=== PATIENT | male | born 1945 | race Caucasian/White ===

== ENCOUNTER 2016-05-02 14:38 | Emergency (ER) | payer MEDICARE, OTHER ==
[2016-05-02] MEDS ORDERED: DIPHENHYDRAMINE HCL IV 50 MG/ML VIAL IVP ONE (15:14)
[2016-05-02] MEDS ORDERED: 0.9 % SODIUM CHLORIDE 1000ML 1,000 ML IV ONE (15:14)
[2016-05-02] MEDS ORDERED: METHYLPREDNISOLONE PF 125MG/VIAL IVP ONE (15:15)
--- NOTE | 2016-05-02 15:16 | Emergency Department Record ---
History of Present Illness - General Chief complaint: ENT Stated complaint: ? ALLERGIC REACTION/TONGUES SWELLING Time Seen by Provider: 05/02/16 15:14 Source: Patient Mode of Arrival: Ambulatory - History of Present Illness Initial comments: ate peanuts yesterday and mouth swelled up and no breathing problems and he has most of the swelling below the tongue and he stated he previously was getting itching when eating peanuts or cashews. Breathing is fine and have some difficult swallowing but able to swallow water. Onset/Timin -: Days(s) Location: Tongue Worsens with: Swallowing - Related Data Home Medications Medication Instructions Recorded Confirmed Last Taken Amlodipine Besylate [Norvasc] 10 mg PO DAILY 05/02/16 05/02/16 05/01/16 Aspirin [Adult Low Dose Aspirin EC] 81 mg PO DAILY 05/02/16 05/02/16 05/02/16 Clonidine HCl [Clonidine HCl] 1 tab PO ASDIR 05/02/16 05/02/16 05/02/16 Multivitamin/Iron/Folic Acid 1 tab PO DAILY 05/02/16 05/02/16 05/02/16 [Centrum] Allergies Allergy/AdvReac Type Severity Reaction Status Date / Time cashew nut Allergy HIVES Verified 05/02/16 14:49 meperidine HCl [From Demerol] AdvReac ALTERED Verified 05/02/16 14:49 MENTAL STATUS Travel Screening - Travel/Exposure Within Last 30 Days Have you traveled within the last 30 days?: No - Travel/Exposure Within Last Year Have you traveled outside the [place] in the last year?: No - Additonal Travel Details Have you been exposed to anyone with a communicable illness?: No - Travel Symptoms Symptom Screening: None Review of Systems Reviewed: No additional complaints except as noted below Constitutional: Reports: As per HPI. Denies: Chills, Fever, Malaise, Night sweats, Weakness, Weight change Eyes: Reports: As per HPI. Denies: Eye discharge, Eye pain, Photophobia, Vision change ENT: Reports: As per HPI, Other (swelling under tongue and tongue). Denies: Congestion, Dental pain, Ear pain, Epistaxis, Hearing loss, Throat pain Respiratory: Reports: As per HPI. Denies: Cough, Dyspnea, Hemoptysis, Stridor, Wheezes Cardiovascular: Reports: As per HPI. Denies: Arrhythmia, Chest pain, Dyspnea on exertion, Edema, Murmurs, Orthopnea, Palpitations, Paroxysmal nocturnal dyspnea, Rheumatic Fever, Syncope Endocrine: Reports: As per HPI. Denies: Fatigue, Heat or cold intolerance, Polydipsia, Polyuria Gastrointestinal: Reports: As per HPI. Denies: Abdominal pain, Constipation, Diarrhea, Hematemesis, Hematochezia, Melena, Nausea, Vomiting Genitourinary: Reports: As per HPI. Denies: Dysuria, Frequency, Hematuria, Incontinence, Retention, Testicular pain, Testicular mass, Urgency Musculoskeletal: Reports: As per HPI. Denies: Arthralgia, Back pain, Gout, Joint swelling, Myalgia, Neck pain Skin: Reports: As per HPI. Denies: Bruising, Change in color, Change in hair/ nails, Lesions, Pruritus, Rash Neurological: Reports: As per HPI. Denies: Abnormal gait, Confusion, Headache, Numbness, Paresthesias, Seizure, Tingling, Tremors, Vertigo, Weakness Psychiatric: Reports: As per HPI. Denies: Anxiety, Auditory hallucinations, Depression, Homicidal thoughts, Suicidal thoughts, Visual hallucinations Hematological/Lymphatic: Reports: As per HPI. Denies: Anemia, Blood Clots, Easy bleeding, Easy bruising, Swollen glands Past Medical History - SOCIAL HISTORY Smoking Status: Former smoker Alcohol Use: Occassional Drug Use: None - RESPIRATORY Hx Respiratory Disorders: Yes Hx Bronchitis: Yes Hx COPD: Yes (possibly minor) Hx Dyspnea: Yes (with exertion) Hx Sleep Apnea: Yes Hx of CPAP: No Comment:: occass allergies - CARDIOVASCULAR Hx Cardio Disorders: Yes Hx Chest Pain: Yes (years ago not cardiac) Hx Edema: Yes (ankles) Hx Hypertension: Yes (on meds fair control) Comment:: right carotid artery blockage no sx 60-70 % monitored every 9 months - NEURO Hx Neuro Disorders: Yes Hx of Migraines: Yes (occular migraines) 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 - GI Hx GI Disorders: No - Hx Genitourinary Disorders: Yes Hx Prostate Problems: Yes (enlarged) - ENDOCRINE Hx Endocrine Disorders: No Hx Diabetes: No - MUSCULOSKELETAL Hx Musculoskeletal Disorders: Yes Hx Arthritis: Yes (fingers and toes) Comment:: displaced fx right little finger - PSYCH Hx Psych Problems: No - HEMATOLOGY/ONCOLOGY Hx Hematology/Oncology Disorders: No Family Medical History Any Significant Family History?: Yes Hx Cancer: Father, Brother/Sister Hx Dementia: Mother Hx HTN: Father, Mother Physical Exam - General General Appearance: Alert, Oriented x3, Cooperative, No acute distress - Head Head exam: Normal inspection - Eye Eye exam: Normal appearance, PERRL Pupils: Normal accommodation - ENT ENT exam: Mucous membranes moist, Normal external ear exam, TM's normal bilaterally, Other (posterior throat not swollen but swelling under the tongue and tongue) Ear exam: Normal external inspection. negative: External canal tenderness Nasal Exam: Normal inspection. negative: Discharge, Sinus tenderness Mouth exam: Normal external inspection, Tongue normal Teeth exam: Normal inspection. negative: Dental caries Throat exam: Normal inspection. negative: Tonsillar erythema, Tonsillar exudate - Neck Neck exam: Normal inspection, Full ROM. negative: Tenderness - Respiratory Respiratory exam: Normal lung sounds bilaterally. negative: Respiratory distress - Cardiovascular Cardiovascular Exam: Regular rate, Normal rhythm, Normal heart sounds - GI/Abdominal GI/Abdominal exam: Soft, Normal bowel sounds. negative: Tenderness - Rectal Rectal exam: Deferred - exam: Deferred - Extremities Extremities exam: Normal inspection, Full ROM, Normal capillary refill. negative: Tenderness - Back Back exam: Reports: Normal inspection, Full ROM. Denies: Muscle spasm, Rash noted, Tenderness - Neurological Neurological exam: Alert, Normal gait, Oriented X3, Reflexes normal - Psychiatric Psychiatric exam: Normal affect, Normal mood - Skin Skin exam: Dry, Intact, Normal color, Warm Course Vital Signs 05/02/16 14:53 Temperature 98.1 F Pulse Rate 63 Respiratory 16 Rate Blood Pressure 150/76 Pulse Ox 94 L - Reevaluation(s) Reevaluation #1: discussed case with patient and concerned if things get worse may need to be intubated but the solu medrol and benadryl helped. 05/02/16 16:28 Reevaluation #2: Discussed case with Dr. Rios and will accept admission transfer via ambulance 05/02/16 16:47 Disposition Clinical Impression: Edema of throat Allergic reaction Qualifiers: Encounter type: initial encounter Qualified Code(s): T78.40XA - Allergy, unspecified, initial encounter Disposition: Acute Care Hospital Transfer Condition: (2) Stable Forms: Patient Portal Access Time of Disposition: 16:48
[2016-05-02] MEDS ORDERED: FAMOTIDINE IV 20 MG/2 ML VIAL IVP ONE (18:40)
== END 2016-05-02 20:12 | disposition short-term general hospital (02) ==
LOC: ER 14:38
DX: T78.1XXA Other adverse food reactions, not elsewhere classified, initial encounter (principal); T78.3XXA Angioneurotic edema, initial encounter; I10 Essential (primary) hypertension; Z87.891 Personal history of nicotine dependence
CPT/HCPCS: 96361; 96374; 96375; 99285; J1200; J2930; J3490

== ENCOUNTER 2016-08-13 09:22 | Day surgery (SDC) | payer MEDICARE, OTHER ==
[2016-08-13] MEDS ORDERED: LIDOCAINE 2% MDV (20MG/ML) 20ML VIAL IV ONE (14:00)
[2016-08-13] MEDS ORDERED: MIDAZOLAM HCL 2MG/2ML VIAL IV ONE (14:00)
[2016-08-13] MEDS ORDERED: PROPOFOL 10 MG/ML VIAL IV ONE (14:00)
--- NOTE | 2016-08-13 17:20 | Operative Note ---
DATE OF SURGERY: 08/13/2016 OPERATION: COLONOSCOPY to the cecum. INDICATION: Family history of colon cancer (father). The patient presents at this time for screening. ANESTHESIA: Intravenous sedation was administered by the department of anesthesiology and included Diprivan titrated to effect. PROCEDURE: Following informed consent from this alert individual including a discussion of the risks and benefits of the procedure and an opportunity for the patient to ask questions, the patient was in the left lateral decubitus position. A digital rectal examination was performed. No abnormalities were noted. Following this, the Olympus [id number] video colonoscope was inserted into the rectum without resistance. The rectal mucosa had a normal appearance with normal folds and distensibility. The colonoscope was advanced up through the bowel to the level of the cecum without much difficulty. Throughout the bowel the mucosa appeared normal, the folds were normal, and the bowel was fairly well distensible. The cecum was defined by noting the appendiceal orifice and ileocecal valve. Retroflexion in the cecum was endoscopically normal. The colon preparation was good. From the base of the cecum, the colonoscope was then withdrawn. There were a few diverticula noted in the sigmoid colon. No other changes were appreciated. No polyps were noted. Retroflexion in the rectum was endoscopically unremarkable. The endoscope was straightened and withdrawn. The patient tolerated the procedure well and was returned to the recovery area in stable condition. IMPRESSION: Sigmoid diverticulosis. Otherwise unremarkable colonoscopy to the cecum. RECOMMENDATIONS: The patient was advised to have recheck colonoscopy in 5 years' time or sooner should problems arise. Followup will otherwise be with Dr. Zeke Matson. As always, thank you for allowing me to participate in the care of your patient. Carlos Burgos DO CC: Dr. Zeke GRIFFIN
== END 2016-08-13 11:45 | disposition home or self-care (01) ==
LOC: HOP 09:22
PROVIDERS: ATTEND Internal Medicine Gastroenterology
DX: Z12.11 Encounter for screening for malignant neoplasm of colon (principal); I10 Essential (primary) hypertension; K57.30 Diverticulosis of large intestine without perforation or abscess without bleeding
CPT/HCPCS: 00810; G0121

== ENCOUNTER 2018-12-12 10:35 | Emergency (ER) | payer MEDICARE ==
--- NOTE | 2018-12-12 11:07 | Emergency Department Record ---
History of Present Illness - General Chief Complaint: Laceration(s) Stated Complaint: RT HAND LAC Time Seen by Provider: 12/12/18 11:00 Source: Patient Mode of Arrival: Ambulatory Limitations: No limitations - History of Present Illness Initial Commments: The patient is here due to cutting his R hand with a eileen knife an hour ago. He denies any numbness or tingling or weakness to his fingers or thumb. The patient states his Td is UTD. Onset/Timin -: Hour(s) Place: Home Context: Accidental Associated Symptoms: None Treatments Prior to Arrival: Bandage - Cleve Coma Scale Eye Response: (4) Open spontaneously Motor Response: (6) Obeys commands Verbal Response: (5) Oriented Cleve Total: 15 - Related Data Hx Tetanus Toxoid Vaccination: No Patient Tetanus UTD (within 5 yrs): No Home Medications Medication Instructions Recorded Confirmed Last Taken Naproxen Sod/Diphenhydramine 1 each PO QHS 12/12/18 12/12/18 Unknown [Aleve Pm Caplet] Previous Rx's Medication Instructions Recorded Cephalexin [Keflex] 500 mg PO TID #15 cap 12/12/18 Allergies Allergy/AdvReac Type Severity Reaction Status Date / Time cashew nut Allergy HIVES Verified 12/12/18 10:56 nut - unspecified Allergy HIVES Verified 12/12/18 10:56 meperidine HCl [From Demerol] AdvReac ALTERED Verified 12/12/18 10:56 MENTAL STATUS Travel Screening - Travel/Exposure Within Last 30 Days Have you traveled within the last 30 days?: No Review of Systems Constitutional: Denies: Chills, Fever Past Medical History - SOCIAL HISTORY Smoking Status: Former smoker Alcohol Use: None Drug Use: None - RESPIRATORY Hx Respiratory Disorders: Yes Hx Bronchitis: Yes Hx COPD: Yes Hx Dyspnea: Yes (with exertion) Hx Sleep Apnea: Yes Hx of CPAP: No Comment:: occass allergies - CARDIOVASCULAR Hx Cardio Disorders: Yes Comment:: right carotid artery blockage no sx, high cholesterol - NEURO Hx Neuro Disorders: Yes Hx of Migraines: Yes (occular migraines) 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 - GI Hx GI Disorders: No - Hx Genitourinary Disorders: Yes Hx Prostate Problems: Yes (enlarged) - ENDOCRINE Hx Endocrine Disorders: No Hx Diabetes: No - MUSCULOSKELETAL Hx Musculoskeletal Disorders: Yes Hx Arthritis: Yes (fingers and toes) - PSYCH Hx Psych Problems: No - HEMATOLOGY/ONCOLOGY Hx Hematology/Oncology Disorders: No Family Medical History Any Significant Family History?: Yes Hx Cancer: Father, Brother/Sister Hx Dementia: Mother Hx HTN: Father, Mother Physical Exam - General General Appearance: Alert, Cooperative, No acute distress - Head Head exam: Atraumatic, Normocephalic - Extremities Extremities exam: negative: Normal inspection (There is a 2 cm lac to the dorsal R hand just proximal to the R 1st MCP. There is normal extension of the R thumb and normal sensation distally.) Image of Hand: 1 - Area of laceration. - Neurological Neurological exam: Alert. negative: Motor sensory deficit Course Vital Signs 12/12/18 10:50 Temperature 97.7 F Pulse Rate 66 Respiratory 16 Rate Blood Pressure 165/60 Pulse Ox 94 L - Reevaluation(s) Reevaluation #1: Procedure note: The R hand laceration was anesth. with 3 cc's Lido 1% with Epi. The wound was prepped with betadine and lavaged with sterile saline. The wound was explored and not down to tendon or bone. The lac was closed with 5 4.0 nylon sutures. There were no complications. 12/12/18 11:31 Disposition Disposition: Discharge Clinical Impression: Laceration of hand Qualifiers: Encounter type: initial encounter Foreign body presence: without foreign body Laterality: right Qualified Code(s): S61.411A - Laceration without foreign body of right hand, initial encounter Disposition: Home, Self-Care Condition: (2) Stable Instructions: Laceration (ED) Additional Instructions: Keep dry for 2 days then no soaking or swimming. Take the Keflex as directed and return for signs of infection. Have the sutures removed in 10 days. Prescriptions: Cephalexin [Keflex] 500 mg PO TID #15 cap Forms: Patient Portal Access Time of Disposition: 11:34 Quality - Quality Measures Quality Measures: N/A - Blood Pressure Screening View Details: Yes Does Patient Have Any of the Following: No Blood Pressure Classification: Hypertensive Reading Systolic Measurement: 165 Diastolic Measurement: 60 Screening for High Blood Pressure: < First Hypertensive BP, F/U Documented > [G8950] First Hypertensive Follow-up Interventions: Referral to alternative/primary care provider.
[2018-12-12] MEDS ORDERED: Diph,Pert(Acell),Tet Vac 0.5 ML SYR IM ONE (11:28)
== END 2018-12-12 11:50 | disposition home or self-care (01) ==
LOC: ER 10:35
DX: S61.411A Laceration without foreign body of right hand, initial encounter (principal); W26.0XXA Contact with knife, initial encounter; Y92.009 Unspecified place in unspecified non-institutional (private) residence as the place of occurrence of the external cause
CPT/HCPCS: 12001; 90715; 96372; 99283

== ENCOUNTER 2018-12-22 09:54 | Emergency (ER) | payer MEDICARE ==
--- NOTE | 2018-12-22 10:11 | Emergency Department Record ---
History of Present Illness - General Chief Complaint: Suture removal Stated Complaint: SUTURE REMOVAL Time Seen by Provider: 12/22/18 09:55 Source: Patient Mode of arrival: Ambulatory Limitations: No limitations - History of Present Illness Initial Comments: The patient is here for suture removal. He denies any problems. Complaint: Suture/staple removal Onset/Timin -: Days(s) Initial Visit For: Laceration Returns Today for: Staple/stitch removal Symptoms Since Prior Visit: No new symptoms Associated Symptoms: None - Related Data Previous Rx's Medication Instructions Recorded Cephalexin [Keflex] 500 mg PO TID #15 cap 12/12/18 Allergies Allergy/AdvReac Type Severity Reaction Status Date / Time cashew nut Allergy HIVES Verified 12/22/18 10:05 nut - unspecified Allergy HIVES Verified 12/22/18 10:05 meperidine HCl [From Demerol] AdvReac ALTERED Verified 12/22/18 10:05 MENTAL STATUS Travel Screening - Travel/Exposure Within Last 30 Days Have you traveled within the last 30 days?: No - Travel/Exposure Within Last Year Have you traveled outside the [place] in the last year?: No - Additonal Travel Details Have you been exposed to anyone with a communicable illness?: No - Travel Symptoms Symptom Screening: None Past Medical History - SOCIAL HISTORY Smoking Status: Former smoker Alcohol Use: None Drug Use: None - RESPIRATORY Hx Respiratory Disorders: Yes Hx Bronchitis: Yes Hx COPD: Yes Hx Dyspnea: Yes (with exertion) Hx Sleep Apnea: Yes Hx of CPAP: No Comment:: occass allergies - CARDIOVASCULAR Hx Cardio Disorders: Yes Comment:: right carotid artery blockage no sx, high cholesterol - NEURO Hx Neuro Disorders: Yes Hx of Migraines: Yes (occular migraines) 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 - GI Hx GI Disorders: No - Hx Genitourinary Disorders: Yes Hx Prostate Problems: Yes (enlarged) - ENDOCRINE Hx Endocrine Disorders: No Hx Diabetes: No - MUSCULOSKELETAL Hx Musculoskeletal Disorders: Yes Hx Arthritis: Yes (fingers and toes) - PSYCH Hx Psych Problems: No - HEMATOLOGY/ONCOLOGY Hx Hematology/Oncology Disorders: No Family Medical History Any Significant Family History?: Yes Hx Cancer: Father, Brother/Sister Hx Dementia: Mother Hx HTN: Father, Mother Physical Exam - General General Appearance: Alert, Oriented x3, Cooperative - Extremities Extremities exam: negative: Normal inspection (The lac is well healed. The sutures were removed without difficulty and steri strips applied.) Course Vital Signs 12/22/18 09:59 Temperature 98.1 F Pulse Rate 47 L Respiratory 16 Rate Blood Pressure 141/70 Pulse Ox 97 Disposition Disposition: Discharge Clinical Impression: Visit for suture removal Disposition: Home, Self-Care Condition: (2) Stable Instructions: Stitches Removal (ED) Additional Instructions: Return to the ER for any signs of infection. Time of Disposition: 10:10 Quality - Quality Measures Quality Measures: N/A - Blood Pressure Screening View Details: Yes Does Patient Have Any of the Following: Active Dx of HTN Blood Pressure Classification: Hypertensive Reading Systolic Measurement: 141 Diastolic Measurement: 70 Screening for High Blood Pressure: Patient Exclusion, Hx of HTN [[id number]]
== END 2018-12-22 10:18 | disposition home or self-care (01) ==
LOC: ER 09:54
DX: Z48.02 Encounter for removal of sutures (principal)